=== PATIENT | female | born 1960 | race Caucasian/White ===

== ENCOUNTER → 2016-12-05 | Outpatient (CLI) | payer OTHER | LOC: BMCIMAGING 15:15 | PROVIDERS: ATTEND Family Medicine | DX: Z12.31 Encounter for screening mammogram for malignant neoplasm of breast (principal) | CPT/HCPCS: G0202 ==

== ENCOUNTER 2017-11-26 12:14 | Emergency (ER) | payer OTHER ==
[2017-11-26 12:47] LABS: PLATELET COUNT 225 10^3/uL (150-400)
--- NOTE | 2017-11-26 13:02 | EDPHY ---
H & P Stated Complaint: dizzy, nausea, lower chest ache Time Seen by Provider: 11/26/17 12:30 HPI/ROS: Chief Complaint: Chest pain HPI: 57-year-old woman presenting with intermittent chest pain since yesterday. Patient states that feels like her prior GERD type symptoms but has not had any relief with Prilosec. The pain is usually brief lasting only few minutes and goes away. It is substernal. Nonradiating. No associated shortness of breath. No leg pain or swelling. No cough. Is not exertional, infection took her dog for a walk was pain free the vancomycin L when she was at home at rest. She does have a family history of coronary artery disease. She has had a negative stress test in the past. She does admit to drinking some alcohol last night. No abdominal pain. She has had some nausea but no vomiting or diarrhea. No dark black tarry stools. She does not smoke. ROS: 10 systems were reviewed and were negative except those elements noted in the HPI. PMH: Denies Social History: No smoking, no alcohol, no recreational drug use Family History: Family history of coronary disease on her father's side Physical Exam: Gen: Awake, Alert, No Distress HEENT: Nose: no rhinorrhea Eyes: PERRLA, EOMI Mouth: Moist mucosa Neck: Supple, no JVD Chest: nontender, lungs clear to auscultation Heart: S1, S2 normal, no murmur Abd: Soft, non-tender, no guarding Back: no CVA tenderness, no midline tenderness Ext: no edema, non-tender Skin: no rash Neuro: CN II-XII intact, Sensation grossly intact, Strength 5/5 in bilateral upper and lower extremities - Personal History Current Tetanus/Diphtheria Vaccine: Unsure Current Tetanus Diphtheria and Acellular Pertussis (TDAP): Unsure - Medical/Surgical History Hx Asthma: No Hx Chronic Respiratory Disease: No Hx Diabetes: No Hx Cardiac Disease: No Hx Renal Disease: No Hx Cirrhosis: No Hx Alcoholism: No Hx HIV/AIDS: No Hx Splenectomy or Spleen Trauma: No Other PMH: left knee replacement - Social History Smoking Status: Never smoked Constitutional: Initial Vital Signs Temperature (C) 36.5 C 11/26/17 12:22 Heart Rate 56 L 11/26/17 12:22 Respiratory Rate 16 11/26/17 12:22 Blood Pressure 167/107 H 11/26/17 12:22 O2 Sat (%) 98 11/26/17 12:22 O2 Delivery Mode Room Air Allergies/Adverse Reactions: No Known Allergies Allergy (Unverified 11/26/17 12:26) Medical Decision Making - Diagnostics EKG Interpretation: ECG time 12:24 p.m., sinus rhythm with a rate of 54, normal axis, normal intervals, no acute ST or T-wave changes. Impression: Normal ECG. Imaging Results: Imaging Impressions Chest X-Ray 11/26/17 12:36 Impression: No acute abnormality. ED Course/Re-evaluation: 57-year-old woman presents with atypical chest pain. She is low risk. Her heart score is 2. I have reviewed the results of the initial diagnostic testing and the risk factors with the patient, including the results of the troponin and the ECG. We have also discussed the results of the repeat troponin. The patient understands that since these are negative, the risk of having a heart attack or heart complication within the next 30 days is 1%, or 1/100. We discussed the patient's personal risk level evaluation and we discussed the importance of follow-up. If their symptoms are to worsen or if they are unable to get follow- up with one-week the patient will return to the emergency department. The decision to be discharged for outpatient follow-up was made by a shared decision making process between myself and the patient. - Data Points Laboratory Results: Laboratory Results 11/26/17 12:40 11/26/17 12:40 11/26/17 11/26/17 11/26/17 12:40 12:40 12:38 WBC 3.83 10^3/uL 10^3/uL (3.80-9.50) RBC 5.27 10^6/uL 10^6/uL (4.18-5.33) Hgb 15.4 g/dL g/dL (12.6-16.3) Hct 47.2 % H % (38.0-47.0) MCV 89.6 fL fL (81.5-99.8) MCH 29.2 pg pg (27.9-34.1) MCHC 32.6 g/dL g/dL (32.4-36.7) RDW 13.5 % % (11.5-15.2) Plt Count 225 10^3/uL 10^3/uL (150-400) MPV 11.6 fL fL (8.7-11.7) Neut % (Auto) 52.6 % % (39.3-74.2) Lymph % (Auto) 36.0 % % (15.0-45.0) [place] % (Auto) 9.1 % % (4.5-13.0) Eos % (Auto) 1.3 % % (0.6-7.6) Baso % (Auto) 1.0 % % (0.3-1.7) Nucleat RBC Rel Count 0.0 % % (0.0-0.2) Absolute Neuts (auto) 2.01 10^3/uL 10^3/uL (1.70-6.50) Absolute Lymphs (auto) 1.38 10^3/uL 10^3/uL (1.00-3.00) Absolute Monos (auto) 0.35 10^3/uL 10^3/uL (0.30-0.80) Absolute Eos (auto) 0.05 10^3/uL 10^3/uL (0.03-0.40) Absolute Basos (auto) 0.04 10^3/uL 10^3/uL (0.02-0.10) Absolute Nucleated RBC 0.00 10^3/uL 10^3/uL (0-0.01) Immature Gran % 0.0 % % (0.0-1.1) Immature Gran # 0.00 10^3/uL 10^3/uL (0.00-0.10) Sodium 143 mEq/L mEq/L (135-145) Potassium 4.5 mEq/L mEq/L (3.3-5.0) Chloride 107 mEq/L mEq/L (97-110) Carbon Dioxide 27 mEq/l mEq/l (22-31) Anion Gap 9 mEq/L mEq/L (8-16) BUN 16 mg/dL mg/dL (7-23) Creatinine 0.7 mg/dL mg/dL (0.6-1.0) Estimated GFR > 60 Glucose 92 mg/dL mg/dL (70-100) Calcium 9.6 mg/dL mg/dL (8.5-10.4) POC Troponin I 0.01 ng/mL ng/mL (0.00-0.08) Point of Care Test Results: Chemistry 11/26/17 12:38 POC Troponin I 0.01 ng/mL ng/mL (0.00-0.08) Departure - Departure Disposition: Home, Routine, Self-Care Clinical Impression: Atypical chest pain Condition: Good Instructions: Chest Pain (ED) Additional Instructions: Follow up with the regional clinical research associate in 1-2 days to schedule an outpatient stress test. Return to the emergency department for worsening chest pain, shortness of breath , fainting, or any other concerns. Referrals: [facility] [Provider Group] - As per Instructions
--- NOTE | 2017-11-26 13:03 | CPEKG ---
Test Reason : OPEN Blood Pressure : / mmHG Vent. Rate : 054 BPM Atrial Rate : 051 BPM P-R Int : 132 ms QRS Dur : 095 ms QT Int : 466 ms P-R-T Axes : 045 042 034 degrees QTc Int : 442 ms Sinus rhythm Confirmed by Hayden Jhaveri ([id number]) on 11/26/2017 1:02:46 PM Referred By: Confirmed By:Hayden Jhaveri
[2017-11-26 13:45] VITALS: BP 123/73
== END 2017-11-26 13:48 | disposition home or self-care (01) ==
DX: R07.89 Other chest pain (principal)
CPT/HCPCS: 84484-PO